=== PATIENT | female | born 2000 | race Caucasian/White ===

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

== ENCOUNTER 2018-03-21 23:14 | Emergency (ER) | payer BC ==
--- NOTE | 2018-03-21 23:47 | ED ---
Complex/Multi-Sys Presentation - HPI Summary HPI Summary: 17 year old F [facility] accompanied by female friend with a chief complaint of left side pain since falling while ice skating 3 hours ago. The patient rates the pain 6/10 in severity. Symptoms aggravated by deep breathing. Symptoms alleviated by nothing. Patient denies shortness of breath. Patient reports SI but denies plan. Patient has depression. She sees a therapist once a week. She states that she was in the ED in August 2017 for "almost bleeding out," which subsequently gave her PTSD. Her mom stopped talking to her for a while, her friends were mean to her, her roommate transferred out. Patient is a student in [employer]. She is from [place]. She lives in a single dorm room now. She reports having a strong support system at school. - History Of Current Complaint Chief Complaint: EDGeneral Time Seen by Provider: 03/21/18 23:35 Hx Obtained From: Patient Onset/Duration: Lasting Hours - 3, Still Present Timing: Constant Severity Currently: Mild Aggravating Factor(s): deep breathing Alleviating Factor(s): nothing Associated Signs And Symptoms: Positive: Other - NEGATIVE: SOB - Allergies/Home Medications Allergies/Adverse Reactions: Allergies Allergy/AdvReac Type Severity Reaction Status Date / Time No Known Allergies Allergy Verified 09/14/17 00:44 PMH/Surg Hx/FS Hx/Imm Hx Previously Healthy: No Endocrine/Hematology History: Denies: Hx Diabetes Respiratory History: Denies: Hx Chronic Obstructive Pulmonary Disease (COPD) Sensory History: Denies: Hx Legally Blind, Hx Deafness Opthamlomology History: Denies: Hx Legally Blind Psychiatric History: Reports: Hx Depression, Hx Post Traumatic Stress Disorder - Surgical History Surgery Procedure, Year, and Place: None Infectious Disease History: No Infectious Disease History: Denies: Traveled Outside the [place] in Last 30 Days - Family History Known Family History: Negative: Cardiac Disease, Hypertension, Diabetes - Social History Occupation: Student Lives: Dormitory/Roommates Alcohol Use: None Hx Substance Use: No Substance Use Type: Reports: None Hx Tobacco Use: No Smoking Status (MU): Never Smoked Tobacco Review of Systems Negative: Shortness Of Breath Positive: Other - left side pain Positive: Other - SI; NEGATIVE: plan All Other Systems Reviewed And Are Negative: Yes Physical Exam - Summary Physical Exam Summary: Appearance: Well-appearing, Well-nourished, lying in bed comfortable Skin: Warm, dry, no obvious rash Eyes: sclera anicteric, no conjunctival pallor ENT: mucous membranes moist Neck: deferred Respiratory: No signs of respiratory distress Cardiovascular: Appears well perfused, pulses are nml Chest: minimal tenderness over the left lateral chest Abdomen: deferred Musculoskeletal: Moving all 4 extremities without obvious discomfort Neurological: Awake and alert, mentation is normal, speech is fluent and appropriate Psychiatric: affect is normal, does not appear anxious or depressed Triage Information Reviewed: Yes Vital Signs On Initial Exam: Initial Vitals Temp Pulse Resp BP Pulse Ox 98.5 F 73 16 134/98 98 03/21/18 23:15 03/21/18 23:15 03/21/18 23:15 03/21/18 23:15 03/21/18 23:15 Vital Signs Reviewed: Yes Diagnostics - Vital Signs Vital Signs Temp Pulse Resp BP Pulse Ox 03/21/18 23:15 98.5 F 73 16 134/98 98 - Laboratory Lab Statement: Any lab studies that have been ordered have been reviewed, and results considered in the medical decision making process. - Radiology Ribs Radiology Interpretation Completed By: ED Physician Summary of Radiographic Findings: Negative for fracture. Pending official report. Complex Multi-Symp Course/Dx Course Of Treatment: 17 year old F [facility] accompanied by female friend with a chief complaint of left side pain since falling while ice skating 3 hours ago. Patient reports SI but denies plan. Patient has depression. She reports having a strong support system at school and sees a therapist weekly. Ribs x-ray did not show fracture. In ED course, patient was given Tylenol. She will be discharged home with follow up from [facility]. She was given instructions to return for new or worsening symptoms. She is agreeable to this plan. Nursing screening questions did reveal some concerns regarding suicidal ideation, but on further questioning, this does not appear to be an immediate danger to this patient. She says she only starts to have these thoughts when she is alone, and is never progressed to thinking about methods of suicide and certainly not making any moves towards that. She is forward thinking, is well established with a therapist that she likes, and tells me she has a great tilt support on-campus. I offered her the opportunity to speak with one of our mental health professionals, but she declines. I do not feel she is a danger to herself or others and accordingly can be discharged to outpatient follow-up. - Diagnoses Provider Diagnoses: Contusion of chest wall Discharge - Sign-Out/Discharge Documenting (check all that apply): Patient Departure - Discharge - Discharge Plan Condition: Good Disposition: HOME Patient Education Materials: Post Traumatic Stress Disorder (ED), Rib Contusion (ED) Referrals: [facility] [Outside] Additional Instructions: Your x rays tonight did not show a broken rib but even a bad contusion can be very painful. Rest over the weekend and take OTC pain medication. Ice can help with the pain as well. - Attestation Statements Document Initiated by Scribe: Yes Documenting Scribe: Yashira Roy Provider For Whom Scribe is Documenting (Include Credential): Ajith Alonso MD Scribe Attestation: IYashira, scribed for Ajith Alonso MD on 03/22/18 at 0206. Status of Scribe Document: Ready
[2018-03-21] MEDS ORDERED: Acetaminophen TAB* 325 MG PO ONE (23:48)
[2018-03-22 00:21] VITALS: BP 131/95
== END 2018-03-22 12:16 | disposition home or self-care (01) ==
LOC: ED 23:14
DX: S20.212A Contusion of left front wall of thorax, initial encounter (principal); V00.211A Fall from ice-skates, initial encounter; Y93.21 Activity, ice skating; Y92.9 Unspecified place or not applicable
CPT/HCPCS: 99282; A9270-GY

== ENCOUNTER 2019-01-14 21:54 | Emergency (ER) | payer BC ==
--- NOTE | 2019-01-14 22:04 | ED ---
Lower Extremity - HPI Summary HPI Summary: 18 yo female presents with RIGHT calf injury. She tells me that about 2 hours [employer] she was in dance club and another dancer stepped on her right calf. Since that time she has been unable to ambulate due to pain. Has not applied ice or taken anything OTC. She has no knee or ankle pain. Denies numbness or tingling. - History of Current Complaint Chief Complaint: EDExtremityLower Stated Complaint: RT LEG INJURY PER PT Time Seen by Provider: 01/14/19 22:03 Hx Obtained From: Patient Severity Initially: Moderate Severity Currently: Moderate Pain Intensity: 5 Pain Scale Used: 0-10 Numeric - Allergies/Home Medications Allergies/Adverse Reactions: Allergies Allergy/AdvReac Type Severity Reaction Status Date / Time No Known Allergies Allergy Verified 01/14/19 21:57 PMH/Surg Hx/FS Hx/Imm Hx Endocrine/Hematology History: Denies: Hx Diabetes Respiratory History: Denies: Hx Chronic Obstructive Pulmonary Disease (COPD) Sensory History: Denies: Hx Legally Blind, Hx Deafness Opthamlomology History: Denies: Hx Legally Blind Psychiatric History: Reports: Hx Depression, Hx Post Traumatic Stress Disorder - Surgical History Surgery Procedure, Year, and Place: None - Immunization History Immunizations Up to Date: Yes Infectious Disease History: No Infectious Disease History: Denies: Traveled Outside the [place] in Last 30 Days - Family History Known Family History: Positive: None - patient denies FHx Negative: Cardiac Disease, Hypertension, Diabetes - Social History Occupation: Student Lives: Dormitory/Roommates Alcohol Use: None Hx Substance Use: No Substance Use Type: Reports: None Hx Tobacco Use: No Smoking Status (MU): Never Smoked Tobacco Review of Systems Constitutional: Negative Cardiovascular: Negative Respiratory: Negative Musculoskeletal: Other - Right calf pain Skin: Negative Neurological: Negative Psychological: Normal All Other Systems Reviewed And Are Negative: No Physical Exam - Summary Physical Exam Summary: GENERAL: NAD. WDWN. No pain distress. SKIN: No rashes, sores, lesions, or open wounds. CHEST: No accessory muscle use. Breathing comfortably and in no distress. CV: Pulses intact PT and DP. Cap refill <2seconds MSK: RIGHT CALF: Moderate TTP about medial mid calf at site that was stepped on. No ecchymosis. No edema or obvious bony deformities. FROM right knee and ankle. Negative caro test. NEURO: Alert. Sensations intact and symmetric B/L LEs PSYCH: Age appropriate behavior. Triage Information Reviewed: Yes Vital Signs On Initial Exam: Initial Vitals Temp Pulse Resp BP Pulse Ox 99.1 F 76 18 139/91 97 01/14/19 21:57 01/14/19 21:57 01/14/19 21:57 01/14/19 21:57 01/14/19 21:57 Vital Signs Reviewed: Yes Procedures - Sedation Patient Received Moderate/Deep Sedation with Procedure: No Diagnostics - Vital Signs Vital Signs Temp Pulse Resp BP Pulse Ox 01/14/19 21:57 99.1 F 76 18 139/91 97 - Laboratory Lab Statement: Any lab studies that have been ordered have been reviewed, and results considered in the medical decision making process. Lower Extremity Course/Dx - Course Course Of Treatment: Suspect contusion. Pt was given naproxen and provided with crutches. Advised to rest, ice, and elevate. Activities as tolerated. Return precautions given and made aware of signs/symptom of compartment syndrome if she develops bruising/swelling over the next hours to days. - Diagnoses Provider Diagnoses: Right calf pain Discharge ED - Sign-Out/Discharge Documenting (check all that apply): Patient Departure - Discharge Plan Condition: Stable Disposition: HOME Patient Education Materials: Contusion in Adults (ED) Referrals: [facility] - Saw SHEPPARD [Primary Care Provider] - Additional Instructions: If you develop a fever, shortness of breath, chest pain, new or worsening symptoms - please call your PCP or go to the ED immediately. Rest, Ice, and elevate your leg as much as possible Take tylenol or ibuprofen as directed for discomfort If you develop increased pain, taught swelling, or changes in the color of your foot - please return to the ER immediately - Billing Disposition and Condition Condition: STABLE Disposition: Home
[2019-01-14] MEDS ORDERED: Naproxen TAB* 250 MG PO ONE (22:19)
[2019-01-14 22:34] VITALS: BP 141/79
== END 2019-01-14 22:25 | disposition home or self-care (01) ==
LOC: ED 21:54
DX: M79.661 Pain in right lower leg (principal); F32.9 Major depressive disorder, single episode, unspecified; F43.10 Post-traumatic stress disorder, unspecified
CPT/HCPCS: 99282; A9270-GY